=== PATIENT | female | born 1990 | race Caucasian/White ===

== ENCOUNTER 2024-11-30 17:23 | Emergency (ER) | payer SELFPAY ==
--- OUTSIDE RECORDS SUMMARY | 2024-11-30 17:51 | XMS_ITS | Clinical Summary ---
Author Organization [facility] Address [address] [place], [place] [id number] Care Team Providers Care Tobacco Curer Name Role Phone Unavailable Primary Care Provider Unavailabl e Allergies Active Allergy Reactions Criticality Noted Date Comments Erythromycin 12/26/2007 Hyperactivity Medications METFORMIN ER 500 MG 24 HR TAB Take three times daily 90 11 01/27/2009 Active spironolactone(A LDACTONE 50 MG TAB) Take one(1) tablet daily. 30 11 06/14/2009 Active Active Problems Problem Noted Date Diagnosed Date PCOS 12/26/2007 Hirsutism 12/26/2007 Androgen excess. 12/26/2007 Mixed hyperlipidemia 12/26/2007 Acquired acanthosis nigricans 12/26/2007 Dysmetabolic syndrome X 12/26/2007 Nonspecific abnormal results of thyroid function study 12/26/2007 Family History Medical History Relation Comments None Brother ADHD Lipids Father Thyroid Maternal Grandmother None Mother None Sister partially deaf, iGA def. Relation Status Comments Brother Father Maternal Grandmother Mother Sister Social History Tobacco Use Types Packs/Day Years Used Date Smoking Tobacco: Never Alcohol Use Standard Drinks/Week Comments No 0 (1 standard drink = 0.6 oz pur e alcohol) Comments No Sex and Gender Information Value Date Recorded Sex Assigned at Not on file Legal Sex Female 8:13 AM EST Gender Identity Not on file Sexual Orientation Not on file Occupation Industry Job Start Date Job End Date student Not on file Not on file Not on file Last Filed Vital Signs Vital Sign Reading Time Taken Comments Blood Pressure 104/70 11/25/2008 8:57 AM EDT Pulse 68 11/25/2008 8:57 AM EDT Temperature - - Respiratory Rate - - Oxygen Saturation - - Inhaled Oxygen Concentration - - Weight 95.4 kg (210 lb 6.4 oz) 11/25/2008 8:57 A M EDT Height 162.6 cm (5' 4 ) 11/25/2008 8:57 AM EDT Body Mass Index 36.12 11/25/2008 8:57 AM EDT Plan of Treatment Health Maintenance Due Date Last Done Comments Anxiety Screening 2008 Depression Screening 2008 HIV Screening 2008 Hepatitis C Screening 2008 DTaP,Tdap,Td Vaccine (1 - Tdap) 2009 Hepatitis B Vaccine (1 of 3 - 19+ 3-dose series) 05/22 Cervical Cancer Screening 05/23/2011 HPV Vaccine (1 - 3-dose SCDM series) 2017 Influenza Vaccine (#1) 2024 Insurance [employer]
--- OUTSIDE RECORDS SUMMARY | 2024-11-30 17:51 | XMS_ITS | Encounter Summary ---
Author Organization [facility] Address [address] [place] [address] Care Team Providers Care Professional Services Manager Name Role Phone Sherry Salazar MD Primary Care Prov ider Pcp, No Primary Care Provider Unavailabl e Source Comments In the event this information is protected by the Federal Confidentiality of Alcohol and Drug AbusePatient Records regulations: The Federal rules restrict any use of the information to criminally investigate or prosecute any alcohol or drug abuse patient.[facility] Encounter Details Date Type Department Care Team (Late st Contact Info) Description 05/14/2008 Abstract Endocrinology [address] [place] [address] Na Uribe, RADIO MESSAGE ROUTER.STEEL FLOOR PAN PLACING SUPERVISOR [address] [place] [address] Social History Tobacco Use Types Packs/Day Years [...] file Not on file Not on file documented as of this encounter Plan of Treatment Not on file documented as of this encounter Visit Diagnoses Not on filedocumented in this encounter Care Teams Professional Services Manager Relationship Specialty Start Date End Date Sherry Salazar MD PCP - General 07/10/07 09/30/21 Pcp, No PCP - General 10/01/21 04/18/22 documented as of this encounter
--- OUTSIDE RECORDS SUMMARY | 2024-11-30 17:51 | XMS_ITS | Patient Health Record ---
Author Organization [facility] Address [address] [place] [address] Care Team Providers Care Proof Machine Operator Supervisor Name Role Phone Dr. Magan Moreno Primary Care Provider Reason For Referral No Information Medications Medication SIG (Take, Route, Fr equency, Duration) Notes Start Date End Date Status Ibuprofen 800 MG 1 tablet with food o r milk as needed Orally every 8 hrs 09/11/2024 Active Encounters Encounter Location Date Provider Diagnosis [address] [id number] 09/11/2024 Magan Moreno Encounter for den duane examination and cleaning with abnormal findings Z01.21 ; Disturbances in tooth eruption K00.6 ; Other dental procedure status Z98.818 ; Dental caries on pit and fissure surface penetrating into dentin K02.52 and Cracked tooth K03.81 Assessments Encounter Date Diagnosis (ICD Code) Assessment Notes Treatment Notes Treatment Clinical Notes Section Notes 09/11/2024 Encounter for dental examination and cleaning with abnormal findings (ICD-10 - Z01.21) 09/11/2024 Disturbances in tooth eruption (ICD-10 - K00.6) 09/11/2024 Other dental procedure status (ICD-10 - Z98.818) 09/11/2024 Dental caries on pit and fissure surface penetrating into dentin (ICD-10 - K02.52) 09/11/2024 Cracked tooth (ICD-10 - K03.81) Plan Of Treatment Next Appt Details Provider Name:Agustina Jacobson 03:20:00 PM, [address], [place], [address], Provider Name:Magan Moreno, 1 03/28/2024 11:30:00 AM, [address], [place], [address],
--- OUTSIDE RECORDS SUMMARY | 2024-11-30 17:51 | XMS_ITS | Encounter Summary ---
Author Organization [facility] Address [address] [place] [address] Care Team Providers Care Hrbp Name Role Phone Sherry Salazar MD Primary Care Prov ider Pcp, No Primary Care Provider Unavailabl e Source Comments In the event this information is protected by the Federal Confidentiality of Alcohol and Drug AbusePatient Records regulations: The Federal rules restrict any use of the information to criminally investigate or prosecute any alcohol or drug abuse patient.[facility] Encounter Details Date Type Department Care Team (Late st Contact Info) Description 06/24/2008 Abstract Endocrinology [address] [place] [address] Na Uribe, MINES SAFETY ENGINEER.GLOVE MACHINE OPERATOR [address] [place] [address] Social History Tobacco Use Types Packs/Day Years [...] on filedocumented in this encounter Care Teams Hrbp Relationship Specialty Start Date End Date Sherry Salazar MD PCP - General 07/10/07 09/30/21 Pcp, No PCP - General 10/01/21 04/18/22 documented as of this encounter
[2024-11-30 17:52] VITALS: BP 143/80; PULSE 104; TEMP 37; O2SAT 98; BMI 47.2
[2024-11-30] MEDS: DIPHTH,PERTUSS(ACELL),TET VAC 0.5 ML SYRINGE IM (18:25)
[2024-11-30] MEDS: LIDOCAINE HCL 1% PF 20 MG/2 ML VIAL INJ (18:25)
--- NOTE | 2024-11-30 18:50 | ED_ITS ---
HPI - Wound/Laceration General Chief Complaint: Wound/Laceration Stated Complaint: CUT PINKY ON RIGHT HAND WITH METAL CAN Time Seen by Provider: 11/30/24 18:01 Source: patient Mode of arrival: walk-in Limitations: no limitations History of Present Illness HPI narrative: 34-year-old female presents after sustaining a vertical laceration to the tip of her right pinky finger while cutting on a can. She cleaned and wrapped the wound at home prior to arrival. Denies numbness, weakness, or other injuries. Tetanus vaccination is not up to date. Related Data Home Medications ?Medication ?Instructions ?Recorded ?Confirmed No Known Home Medications 11/30/2411/17 Allergies Allergy/AdvReac Type Severity Reaction Status Date / Time No Known Drug Allergies Allergy Verified 11/30/24 17:52 PFSH PFSH Social History Little interest or pleasure in doing things: not at all Feeling down, depressed, or hopeless: not at all Exam Narrative Exam Narrative: Exam: * General: Alert, oriented ?3, in no acute distress * Vitals: Stable * Right Hand: * Vertical laceration on tip of right pinky finger * No nailbed involvement * No active bleeding * Good capillary refill * Intact sensation and strength * Full range of motion at DIP and PIP joints * No foreign body visible * Other Systems: No additional injuries or abnormalities noted Constitutional Vital Signs, click to edit/add: Last Vital Signs Temp 98.6 F 11/30/24 17:52 Pulse 104 H 11/30/24 17:52 Resp 11/30/24 17:52 BP 143/80 H 11/30/24 17:52 Pulse Ox 98 11/30/24 17:52 O2 Del Method Room Air 11/30/24 17:52 Course Vital Signs Vital signs: Vital Signs Temperature 98.6 F 11/30/24 17:52 Pulse Rate 104 H 11/30/24 17:52 Respiratory Rate 14 11/30/24 17:52 Blood Pressure 143/80 H 11/30/24 17:52 Pulse Oximetry 98 11/30/24 17:52 Oxygen Delivery Method Room Air 11/30/24 17:52 Temperature 98.6 F 11/30/24 17:52 Pulse Rate 104 H 11/30/24 17:52 Respiratory Rate 14 11/30/24 17:52 Blood Pressure 143/80 H 11/30/24 17:52 Pulse Oximetry 98 11/30/24 17:52 Oxygen Delivery Method Room Air 11/30/24 17:52 MDM - Wound/Laceration MDM Narrative Medical decision making narrative: MDM: 34-year-old female with isolated fingertip laceration of the right fifth digit. Exam and wound exploration showed no tendon injury, no foreign body, no bone exposure, and no nailbed involvement. Wound was irrigated and closed primarily with 4-0 Prolene ?2. Tetanus updated. Patient counseled on wound care, infection precautions, and suture removal in 10 days. Return precautions reviewed for redness, swelling, drainage, fever, or loss of function. Patient verbalized understanding and is stable for discharge. Differential Diagnosis Differential diagnosis: Likely laceration, abrasion and avulsion of skin Discharge Plan Discharge Chief Complaint: Wound/Laceration Clinical Impression: Laceration Patient Disposition: Home, Self-Care Time of Disposition Decision: 18:54 Condition: Good Prescriptions / Home Meds: No Action No Known Home Medications Print Language: Korean Instructions: Finger Laceration (ED) Additional Instructions: Exam: * General: Alert, oriented ?3, in no acute distress * Vitals: Stable * Right Hand: * Vertical laceration on tip of right pinky finger * No nailbed involvement * No active bleeding * Good capillary refill * Intact sensation and strength * Full range of motion at DIP and PIP joints * No foreign body visible * Other Systems: No additional injuries or abnormalities noted Referrals: Abigail Villanueva NP [Primary Care Provider] - 1 week Procedures ED Procedure Instructions Procedures Procedures: Procedure Note ? Laceration Repair Location: Right fifth digit, distal tip Length: 1 cm Findings: No tendon injury, no exposed bone, no nail involvement Neurovascular: Intact, normal capillary refill Procedure: * Area prepped and draped in sterile fashion * Anesthetized locally with 1% lidocaine * Irrigated thoroughly with chlorhexidine and saline * Wound explored ? no foreign body visualized * Closed with 4-0 Prolene, 2 simple interrupted sutures placed with good approximation * Hemostasis achieved * Dressed with non-stick bandage Tetanus: Updated Post-Procedure: * Patient tolerated procedure well, no complications * Neurovascular status intact post-repair * *
[2024-11-30 19:10] VITALS: BP 136/96; PULSE 95; O2SAT 96
== END 2024-11-30 19:12 | disposition home or self-care (01) ==
PROVIDERS: Emergency Provider Emergency Medicine; PCP Nurse Practitioner Family
DX: S61.216A Laceration without foreign body of right little finger without damage to nail, initial encounter (principal); W26.8XXA Contact with other sharp object(s), not elsewhere classified, initial encounter; Z23 Encounter for immunization
CPT/HCPCS: 12001; 90471; 90715; 99283

== ENCOUNTER 2024-12-08 16:16 | Emergency (ER) | payer SELFPAY ==
[2024-12-08 16:45] VITALS: BP 136/87; PULSE 91; TEMP 36.9; O2SAT 97; BMI 42.9
--- NOTE | 2024-12-08 17:25 | ED_ITS ---
HPI - Recheck/Abnormal Lab/Rx General Chief Complaint: Recheck/Abnormal Lab/Rx Stated Complaint: GET STITCHES TAKEN OUT Time Seen by Provider: 12/08/24 17:19 Source: patient Mode of arrival: walk-in History of Present Illness HPI narrative: HPI: Patient presents to the ED for suture removal of the fifth digit. Sutures were placed on the . She reports no pain, tenderness, or drainage from the site. She has been moving the finger through full range of motion without difficulty. No other complaints at this time. MD complaint: Reports suture/staple removal Related Data Home Medications ?Medication ?Instructions ?Recorded ?Confirmed No Known Home Medications 11/30/2411/18 Allergies Allergy/AdvReac Type Severity Reaction Status Date / Time No Known Drug Allergies Allergy Verified 12/08/24 16:44 PFSH PFSH Social History Little interest or pleasure in doing things: not at all Feeling down, depressed, or hopeless: not at all Exam Narrative Exam Narrative: * General: Alert, comfortable, in no acute distress * Right Fifth Digit: * Sutures present, no erythema, swelling, or drainage * Wound edges well-approximated * Full range of motion of the finger * No signs of infection or complication Constitutional Vital Signs, click to edit/add: Last Vital Signs Temp 98.4 F 12/08/24 16:45 Pulse 91 H 12/08/24 16:45 Resp 16 12/08/24 16:45 BP 136/87 12/08/24 16:45 Pulse Ox 97 12/08/24 16:45 O2 Del Method Room Air 12/08/24 16:45 Course Vital Signs Vital signs: Vital Signs Temperature 98.4 F 12/08/24 16:45 Pulse Rate 91 H 12/08/24 16:45 Respiratory Rate 16 12/08/24 16:45 Blood Pressure 136/87 12/08/24 16:45 Pulse Oximetry 97 12/08/24 16:45 Oxygen Delivery Method Room Air 12/08/24 16:45 Temperature 98.4 F 12/08/24 16:45 Pulse Rate 91 H 12/08/24 16:45 Respiratory Rate 16 12/08/24 16:45 Blood Pressure 136/87 12/08/24 16:45 Pulse Oximetry 97 12/08/24 16:45 Oxygen Delivery Method Room Air 12/08/24 16:45 MDM - Recheck/Abnormal Lab/Rx MDM Narrative Medical decision making narrative: Procedure: * Area cleaned with Betadine * Two sutures removed without difficulty * Wound covered with a clean bandage * Patient tolerated procedure well and was comfortable throughout MDM: Sutures removed successfully without complication. Wound appears well-healed, clean, and non-infected. Discussed continued wound care including keeping the area clean, dry, and monitoring for redness, drainage, or pain. Patient advised to follow up as previously planned and to return earlier if any concerning signs develop. Patient verbalized understanding and agreement with the plan. Differential: * Normal post-surgical healing (most likely) * Infection (ruled out ? no redness, drainage, or tenderness) * Delayed wound healing or dehiscence (unlikely ? wound well-approximated, edges intact) Medical Records Attestation: I reviewed the patient's medical records. Discharge Plan Discharge Chief Complaint: Recheck/Abnormal Lab/Rx Clinical Impression: Encounter for removal of sutures Patient Disposition: Home, Self-Care Time of Disposition Decision: 17:28 Condition: Good Prescriptions / Home Meds: No Action No Known Home Medications Print Language: Urdu Instructions: Stitches Removal (ED) Additional Instructions: After Visit Summary ? Suture Removal What We Did Today: * Your sutures on the fifth finger were removed successfully. * The wound looks clean, well-healed, and there are no signs of infection. Home Care Instructions: * Keep the area clean and dry: Wash gently with soap and water if needed. * Bandage: Keep a small bandage on the finger for protection if desired. Change it if it gets wet or dirty. * Activity: You may continue normal finger movements; avoid trauma to the area. * Pain: If mild discomfort occurs, you may take [id number] pain medicine such as acetaminophen (Tylenol) or ibuprofen (Motrin/Advil) as needed. Watch For: Call your doctor or return to the ED if you notice: * Redness, swelling, or warmth around the wound * Pus or drainage from the site * Increasing pain or tenderness * Wound opening or bleeding Follow-Up: * No further routine follow-up is required unless any concerning symptoms develop. Referrals: Abigail Villanueva NP [Primary Care Provider] - 1 week Discharge Date/Time: 12/08/24 17:47
== END 2024-12-08 17:47 | disposition home or self-care (01) ==
PROVIDERS: Emergency Provider Emergency Medicine; PCP Nurse Practitioner Family
DX: S61.216D Laceration without foreign body of right little finger without damage to nail, subsequent encounter (principal); X58.XXXD Exposure to other specified factors, subsequent encounter
CPT/HCPCS: 99281